=== PATIENT | male | born 1960 | race Caucasian/White ===

== ENCOUNTER → 2019-03-11 08:17 | Outpatient (CLI) | payer BC, SELFPAY ==
[2019-03-11 10:59] LABS: Cholesterol 202 mg/dL (140-199); Glucose 84 mg/dL (70-100); HDL Cholesterol 48 mg/dL (40-60); LDL Cholesterol Calculated 127 mg/dL (<100); Triglycerides 137 mg/dL (35-150)
[2019-03-11 11:29] LABS: Thyroid Stimulating Hormone 2.25 uIU/mL (0.47-4.68)
[2019-03-13 16:01] LABS: Fecal Immunochemical Test NOT DETECTED (NOT DETECTED)
== END ==
PROVIDERS: PCP Family Medicine; Visit Provider Family Medicine
DX: Z12.5 Encounter for screening for malignant neoplasm of prostate (principal); Z13.1 Encounter for screening for diabetes mellitus; Z13.220 Encounter for screening for lipoid disorders; Z12.11 Encounter for screening for malignant neoplasm of colon; F51.01 Primary insomnia
CPT/HCPCS: 36415; 80061; 82274; 82947; 84443

== ENCOUNTER → 2020-05-25 10:55 | Outpatient (CLI) | payer BC, SELFPAY ==
[2020-05-25 12:08] LABS: Add Manual Diff / Slide Review NO; Basophils Absolute Auto 0 /uL (0-100); Basophils Percent Auto 0.7 % (0-2); Eosinophils Absolute Auto 100 /uL (0-450); Eosinophils Percent Auto 1.3 % (2-4); Hematocrit 44.4 % (41-53); Lymphocytes Absolute Auto 1500 /uL (1100-4500); Lymphocytes Percent Auto 28.3 % (25-40); Mean Corpuscular HGB Conc 33.9 % (30-36); Mean Corpuscular Hemoglobin 30.4 PG (26-34); Mean Corpuscular Volume 89.9 fL (80-100); Monocytes Absolute Auto 400 /uL (0-900); Monocytes Percent Auto 7.9 % (3-14); Neutrophils Absolute Auto 3300 /uL (1500-7000); Neutrophils Percent Auto 61.8 % (50-75); Platelet Count 288 X10^3/uL (150-400); Red Blood Cell Count 4.94 X10^6/uL (4.5-5.9); Red Cell Distribution Width 13.4 % (11.6-14.8); White Blood Cell Count 5.4 X10^3/uL (4.5-11.0)
[2020-05-25 12:24] LABS: Alanine Aminotransferase 32 IU/L (<50); Albumin 5.1 g/dL (3.5-5.0); Albumin Globulin Ratio 1.5 (1.0-2.8); Alkaline Phosphatase 80 U/L (38-126); Aspartate Aminotransferase 38 IU/L (17-59); BUN Creatinine Ratio 20.6 (6-22); Bilirubin Total 0.9 mg/dL (0.2-1.3); Blood Urea Nitrogen 21 mg/dL (9-20); Carbon Dioxide 26 mmol/L (22-32); Chloride 101 mmol/L (98-107); Estimated Glomerular Filt Rate > 60.0 mL/min (>60); Globulin 3.3 g/dL (1.7-4.1); Glucose 98 mg/dL (70-100); HEMOLYSIS < 15 (0-50); Potassium 4.4 mmol/L (3.4-5.1); Sodium 138 mmol/L (137-145); Total Protein 8.4 g/dL (6.3-8.2)
== END ==
PROVIDERS: PCP Family Medicine; Referring Provider Registered Nurse; Visit Provider Registered Nurse
DX: K92.1 Melena (principal); R10.9 Unspecified abdominal pain
CPT/HCPCS: 36415; 80053; 85025

== ENCOUNTER → 2020-06-01 14:24 | Outpatient (CLI) | payer BC, SELFPAY ==
--- NOTE | 2020-06-01 14:27 | DI.CT.S_ITS ---
PROCEDURE: CT ABDOMEN PELVIS W CON INDICATIONS: abdominal pain, blood in stool TECHNIQUE: After the administration of oral and intravenous contrast, 5 mm thick sections acquired from the diaphragms to the symphysis. 5 mm thick coronal and sagittal reformats were performed. For radiation dose reduction, the following was used: automated exposure control, adjustment of mA and/or kV according to patient size. COMPARISON: None. FINDINGS: Image quality: Excellent. ABDOMEN: Lung bases: Lung bases are clear. Heart size is normal. Solid organs: Liver is normal in size and enhancement. Gallbladder negative . Biliary system is non-dilated. Pancreas enhances normally. Spleen is normal in size and enhancement. No adrenal nodules. Kidneys are normal in size and enhancement, without hydronephrosis. Moderate amount of stool. No bowel obstruction identified. No bowel wall thickening is seen. No free fluid or air. Normal appendix. Colonic diverticulosis is seen without evidence of acute complication. Nodes and vessels: No retroperitoneal or mesenteric adenopathy. Aorta and inferior vena cava are normal in caliber. Miscellaneous: No ventral hernias. PELVIS: Genitourinary: Bladder wall thickness is normal. Miscellaneous: No inguinal hernias or adenopathy. Bones: No suspicious bony lesions. No vertebral body compression fractures. IMPRESSION: No acute abnormality. Normal appendix. Additional chronic and incidental findings as above. Moderate to large amount of stool. Dictated by: Domenico Melendez M.D. on 06/01/2020 at 16:20 Approved by: Domenico Melendez M.D. on 06/01/2020 at 16:25
== END ==
PROVIDERS: PCP Family Medicine; Referring Provider Registered Nurse; Visit Provider Registered Nurse
DX: K92.1 Melena (principal); R10.9 Unspecified abdominal pain; K57.90 Diverticulosis of intestine, part unspecified, without perforation or abscess without bleeding
CPT/HCPCS: 74177; Q9967

== ENCOUNTER → 2020-08-22 09:29 | Outpatient (CLI) | payer BC, SELFPAY ==
[2020-08-24 05:56] LABS: COVID19 Sendout Not Detected (Not Detect)
== END ==
PROVIDERS: PCP Family Medicine; Visit Provider Physician Assistant
DX: Z01.812 Encounter for preprocedural laboratory examination (principal)
CPT/HCPCS: 87635

== ENCOUNTER 2020-08-25 07:33 | Day surgery (SDC) | payer BC, SELFPAY ==
[2020-08-25] VITALS (10 sets, daily range): BP systolic 81–131; BP diastolic 52–75; PULSE 59–80; RESP 10–17; TEMP 36.2–36.7; O2SAT 92–98; BMI 27.1
--- NOTE | 2020-08-25 | PATH_ITS ---
[facility] Accession Number: [id number] . 01 Material submitted: . colon - POLYP AT 100CM . 02 Diagnosis: Colon, Polyp at 100 cm, Biopsy: Tubular adenoma. MRV 08/28/2020 1022 Local . 02 Electronically signed: . Melinda Dangelo MD, Pathologist NPI- [id number] . 01 Gross description: . Received in formalin, labeled polyp at 100 cm, and consists of two duron-pink fragments of soft tissue measuring 0.5 x 0.4 x 0.2 cm in aggregate. The specimen is entirely submitted in cassette A1. ([id number]) /MRV 08/26/2020 1233 Local . 02 Pathologist provided ICD-10: D12.6 . 02 CPT . 091122 Performed at: 01 [facility] [address] [id number] MD Tyron Jones MD Phone: [phone] Performed at: 02 [facility] [id number] [place] [id number] MD Melinda Dangelo MD Phone: [phone]
--- NOTE | 2020-08-25 09:06 | PM.PREOP ---
Pre-operative Note COVID-19 COVID-19 status: Negative Result date/Date tested (Pos, Neg/Pending): 08/22/20 Interval Note History & Physical reviewed/Exam performed by Physician: Yes Changes to H&P: No ASA Class (for procedural sedation): I
[2020-08-25] MEDS: LACTATED RINGERS 1,000 ML 200 ML IV ×2 (09:18→10:39)
[2020-08-25] MEDS: fentaNYL 250 MCG/5 ML INJ IV (09:40)
[2020-08-25] MEDS: MIDAZOLAM 5 MG/5 ML VIAL IV (09:40)
--- NOTE | 2020-08-25 10:01 | PM.OP.ENDO ---
Operative Date/Time/Diagnoses Date of procedure: 08/25/20 Time of procedure: 10:01 Pre-op diagnosis: Screening exam. This is the patient's 1st colonoscopy. Post-op diagnosis: same (One small polyp. Scattered diverticulosis.) Procedure & Clinicians Study performed: Colonoscopy with cold biopsy Same procedure as scheduled: Yes Indications: Screening Surgeon: Wayne Frederick Procedure Notes SCOAP/Timeout: Performed Procedure in detail: The patient was placed in the left lateral decubitus position and underwent IV sedation directed by the surgeon consisting of fentanyl and Versed. Digital exam was normal. Prostate was not enlarged.. The scope was inserted and advanced through the rectum into the sigmoid, descending, transverse, and ascending colon. The patient had to be repositioned, pressure applied, and a stiffener inserted ordered reach the cecum. Patient was noted to have diverticulosis scattered infrequently throughout the colon.. The cecum was reached identified by the ileocecal valve and the appendiceal opening. The scope was gradually brought out. One Polyp was found at 100 cm from the anal verge and was completely removed. The scope ultimately was retroflexed in the rectum. The appearance was normal. The scope was removed and the patient tolerated the procedure well. Prep was good. Scope withdrawal time: 7 minutes(9 total) Sedation minutes: 31 Findings: diverticulosis Specimen(s): other (Polyp) Complications: none Post-procedure Recommendations: Colonscopy in 5 years Follow up: as needed Disposition: PACU
--- NOTE | 2020-08-25 11:12 | SUR.PHASEII ---
1108-Pt dcd in stabel condition via wc with no c/o and all belongings
== END 2020-08-25 11:08 | disposition home or self-care (01) ==
PROVIDERS: PCP Family Medicine; Referring Provider Specialist; Visit Provider Specialist
PROC: 0DJD8ZZ Inspection of Lower Intestinal Tract, Via Natural or Artificial Opening Endoscopic (ICD-10-PCS; CPT 45378; principal; 2020-08-25 08:30)
DX: R10.9 Unspecified abdominal pain (principal); K62.5 Hemorrhage of anus and rectum; K57.30 Diverticulosis of large intestine without perforation or abscess without bleeding; D12.6 Benign neoplasm of colon, unspecified
CPT/HCPCS: 45380; 99152; 99153; J2250; J3010

== ENCOUNTER → 2021-02-11 10:46 | Outpatient (CLI) | payer BC, SELFPAY ==
[2021-02-11] MEDS: COVID-19 VACC, Ad26(JANSSEN)/PF 0.5 ML IM (10:54)
== END ==
PROVIDERS: PCP Family Medicine; Visit Provider Internal Medicine
DX: Z23 Encounter for immunization (principal)
CPT/HCPCS: 0031A; 91303

== ENCOUNTER → 2021-09-10 10:43 | Outpatient (CLI) | payer BC, SELFPAY ==
[2021-09-10] MEDS: COVID-19 VACC #3, MRNA(MOD) 50 MCG/0.25 ML VIAL IM (10:54)
== END ==
PROVIDERS: PCP Family Medicine; Visit Provider Internal Medicine
DX: Z23 Encounter for immunization (principal)
CPT/HCPCS: 0013A; 91301

== ENCOUNTER → 2024-08-30 10:20 | Outpatient (CLI) | payer OTHER, SELFPAY ==
--- NOTE | 2024-08-30 10:21 | DI.ECHO.S_ITS ---
[facility]---------+ [facility] : : [address] : : [place] : : [id number] : : Phone: [phone] Echocardiogram Report + + :Name: BIPIN DORMAN Study Date: 08/30/2024 Height: 76 in : :[facility] ReadingLocation: Weight: 235 lb : : Gender: Male BSA: 2.4 m2 : :: 1960 Age: 64 yrs BP: 125/82 mmHg: :Reason For Study: MVP : :Ordering Physician: GILLIAN HATCH Performed By: Ava Toussaint : :Referring: GILLIAN HATCH : + + Interpretation Summary 1. The left ventricular contractility is borderline. Estimated ejection fraction is 50 to 55% with no segmental wall motion abnormalities. No LVH. 2. The right ventricular contractility is normal. 3. Biatrial enlargement noted. The right ventricular cavity is also dilated. The left ventricular cavity is of normal size. 4. Mild fibrocalcific changes on the mitral valve with an annuloplasty ring in place. Trace to mild mitral regurgitation noted. 5. Mild tricuspid regurgitation present with estimated pulmonary systolic artery pressures of 31 mmHg. 6. No obvious intracardiac shunts. 7. No obvious intracardiac masses nor thrombi. 8. No hemodynamically significant pericardial effusion. 9. Low right-sided filling pressures. Conclusion: Low normal left ventricular systolic function with intact mitral valve repair. Procedure: A two-dimensional transthoracic echocardiogram with color flow and Doppler was performed. The study quality was technically adequate. There is no prior echocardiogram noted for this patient. The patient was in sinus bradycardia with heart rates between 60-68 bpm during the exam. Left Ventricle: The left ventricle is normal in size and wall thickness. The ejection fraction is estimated to be 55-60%. Right Ventricle: The right ventricle is mildly dilated. The right ventricular systolic function is normal. Atria: The left atrium is severely dilated. The right atrium is mildly dilated. There is no Doppler evidence for an interatrial shunt. Mitral Valve: An annuloplasty ring is noted in the mitral position. The mitral valve mean gradient is 2.4 mmHg. There is mild mitral regurgitation. Aortic Valve: The aortic valve is trileaflet. The aortic valve opens well. There is no aortic valve stenosis. No aortic regurgitation is present. Tricuspid Valve: The tricuspid valve is normal in structure and function. The right ventricular systolic pressure is estimated to be at least 31 mmHg based on an estimated right atrial pressure of 3 mm Hg. There is mild tricuspid regurgitation. Pulmonic Valve: The pulmonic valve leaflets are thin and pliable; valve motion is normal. There is trace pulmonic regurgitation. Great Vessels: The aortic root is normal size. The dimensions of the ascending aorta are normal. The IVC is of normal diameter and collapses greater than 50% with a sniff. This suggests a low right atrial pressure of 3 mm Hg. Pericardium/ Pleura There is no pericardial effusion. There is no pleural effusion. MMode/2D Measurements & Calculations LVIDd: 5.1 cm LVOT diam: 2.5 cm LVIDs: 3.9 cm Ao root diam: 3.6 cm FS: 24.1 % asc Aorta Diam: 3.3 cm EPSS: 0.40 cm Ao Arch Diam (Prox Trans): 3.1 cm IVSd: 0.79 cm LVPWd: 0.90 cm LV pepper. diameter/BSA (cm/m^2): 2.2 LV sys. diameter/BSA (cm/m^2): 1.6 LA A2 area: 28.3 cm2 RA long axis: 6.5 cm LA A4 area: 31.5 cm2 RA area: 26.6 cm2 LA length (vol): 6.2 cm RA vol: 93.0 ml LA vol: 122.1 ml RA : 39.2 ml/m2 LA vol index: 51.5 ml/m2 IVC diam: 2.0 cm RVD1 (basal): 5.7 cm RVD2 (mid): 4.0 cm TAPSE: 2.6 cm Doppler Measurements & Calculations Ao V2 max: 82.8 cm/sec LVOT Max Hipolito: 68.7 cm/sec Ao V2 mean: 62.2 cm/sec LV V1 max P.9 mmHg Ao max P.7 mmHg LV V1 VTI: 16.7 cm Ao mean P.7 mmHg ELYSSA(I,D): 4.0 cm2 Ao V2 VTI: 20.4 cm ELYSSA(V,D): 4.0 cm2 sev ratio: 0.82 ELYSSA indexed to BSA (cm^2/m^2): 1.7 MV E max hipolito: 113.5 cm/sec TR max hipolito: 263.0 cm/sec MV A max hipolito: 61.9 cm/sec TR max P.7 mmHg MV E/A: 1.8 PA V2 max: 69.7 cm/sec Med Peak E' Hipolito: 8.0 cm/sec PA V2 mean: 49.3 cm/sec E/E' med: 14.2 PA mean P.1 mmHg Lat Peak E' Hipolito: 8.9 cm/sec PA pr(Accel): 19.1 mmHg E/E' lat: 12.7 E/e' average: 13.5 MV dec time: 0.18 sec MVA(VTI): 2.5 cm2 MV V2 mean: 71.7 cm/sec SV(LVOT): 81.0 ml MV mean P.4 mmHg MV V2 VTI: 31.8 cm Reading Physician:
== END ==
PROVIDERS: PCP Family Medicine; Referring Provider Internal Medicine; Visit Provider Internal Medicine
DX: I08.1 Rheumatic disorders of both mitral and tricuspid valves (principal)
CPT/HCPCS: 93306

== ENCOUNTER → 2025-08-13 09:50 | Outpatient (CLI) | payer OTHER, SELFPAY ==
[2025-08-13 10:56] LABS: Cholesterol 226 mg/dL (140-199); Glucose 93 mg/dL (70-99); HDL Cholesterol 53 mg/dL (40-60); Triglycerides 193 mg/dL (35-150)
== END ==
PROVIDERS: PCP Family Medicine; Referring Provider Family Medicine; Visit Provider Family Medicine
DX: Z13.220 Encounter for screening for lipoid disorders (principal); Z13.1 Encounter for screening for diabetes mellitus
CPT/HCPCS: 36415; 80061; 82947